=== PATIENT | male | born 1990 | race American Indian/Alaskan Native ===

== ENCOUNTER 2017-08-28 08:09 | Emergency (ER) | payer SELFPAY ==
[2017-08-28 09:28] LABS: Bacteria,Urine 1+ /HPF (Negative); Bilirubin,Urine NEG (Negative); Blood,Urine NEG (Negative); Color,Urine Yellow (Yellow); Mucus,Urine 2+ /HPF; Nitrite,Urine NEG (Negative); Protein,Urine <15 mg/dL mg/dL (Negative); Urobilinogen,Urine < 2.0 mg/dL (<2.0)
--- NOTE | 2017-08-28 12:38 | Emergency Department Report ---
ED Rash HPI - HPI Chief Complaint: Skin Rash Stated Complaint: RASH/STD Location: Other (penile) Rash Symptoms: Yes Itching, No Facial Swelling, No Tongue/Oral Swelling, No Breathing Difficulties, No Choking Sensation, No Wheezing/Dyspnea, No Peeling, No Blistering, No Fever, No Lightheaded, No Malaise, No Myalgias Severity: Unable to Determine Other History: 27 y/o nontoxic in appearance male presents to the ED complaining of penile sores for the past 1 month. Pt has been seen by his pcp multiple times and was told that it may be syphillis and has been on doxycycline for that past few weeks. He states that the lesions come and go and cleared up recently and reappeared a few days ago. He states that he now has a tingling sensation and pain when something touches the region. He denies any fever, chills, cp, SOB, nasuea, vomiting, frequency, urgency, or LBP. He states that he has been eating, drinking, urinating, and defecating without any issues. He also admits to being treated for scabies about 3 months ago. NKDA. ED Review of Systems ROS: Stated complaint: RASH/STD Other details as noted in HPI Constitutional: denies: chills, fever Eyes: denies: eye pain, eye discharge, vision change ENT: denies: ear pain, throat pain Respiratory: denies: cough, shortness of breath, wheezing Cardiovascular: denies: chest pain, palpitations Endocrine: no symptoms reported Gastrointestinal: denies: abdominal pain, nausea, diarrhea Genitourinary: denies: urgency, dysuria Musculoskeletal: denies: back pain, joint swelling, arthralgia Skin: rash, other (at the penile shaft and near the opening, redness, and tingling) Neurological: denies: headache, weakness, paresthesias Psychiatric: denies: anxiety, depression Hematological/Lymphatic: denies: easy bleeding, easy bruising ED Past Medical Hx - Past Medical History Previous Medical History?: No - Surgical History Past Surgical History?: Yes Additional Surgical History: jaw sugery 2006 - Social History Smoking Status: Never Smoker Substance Use Type: Alcohol - Medications Home Medications: Home Medications Medication Instructions Recorded Confirmed Last Taken Type Acyclovir [Zovirax Tab] 400 mg PO Q8H #24 tab 08/28/17 Unknown Rx Rash Exam - Exam General: Vital signs noted. No distress. Alert and acting appropriately. HEENT: No Periorbital Edema, No Conjuctival Injection, No Chemosis, No Perioral Edema, No Tongue Edema, No Uvular Edema, No Compromised Airway, No Drooling Lungs: Yes Good Air Exchange, No Wheezes, No Ronchi, No Stridor, No Cough, No Retractions, No Use of Accessory Muscles, No Other Abnormal Lung Sounds Heart: Yes Regular, No Murmur Skin: Yes Tenderness (2, 4mm in size lesions, red and shiny in nature, one at the penile shaft and the other near the penile opening, mildly ttp, No oozing, pus or draiange from the site, manager internal in room Mary staff software engineer and then GAB Freed), No Urticarial Rash, No Maculopapular Rash, No Morbilliform rash, No Bulla(e), No Excoriations, No Weeping, No Erythema, No Edema, No Encrustations Other: Positive: Abdomen Normal, Neurologic Normal (alert and oriented, strength 5/5, EOMI, perrla, CN 1-12 intact), Musculoskeletal Normal ED Course Vital Signs 08/28/17 08:14 Temperature 98.1 F Pulse Rate 88 Respiratory 16 Rate Blood Pressure 128/70 O2 Sat by Pulse 100 Oximetry ED Medical Decision Making - Medical Decision Making Pt was examined by myself and GAB Freed. Pt is currently on doxycycline for suspected syphyllis given to by his PCP, pt states that he was never told that he had syphyllis but he states that his PCP was treating him prophylactically as she was unsure what the cause of the lesion was. The presentation today appeared to be consistent with the early stages of herpes formation prior to the crusting stage and with the tenderness to palpation and tingling sensation I have treated patient with herpes simplex with acyclovir at this time, I have obtained an HSV swab to confirm this diagnosis. Pt has an apt with PCP on Wednesday for follow-up regarding this issue, he was encouraged to keep this appointment. I have also provided him with a dermatology referral at this time. Critical care attestation.: If time is entered above; I have spent that time in minutes in the direct care of this critically ill patient, excluding procedure time. ED Disposition Clinical Impression: Penile lesion Disposition: DC-01 TO HOME OR SELFCARE Is pt being admited?: No Does the pt Need Aspirin: No Condition: Stable Instructions: Acyclovir (By mouth), Genital Herpes Simplex (ED) Additional Instructions: Please take the antiviral 3 times a day as indicated. Please follow-up with PCP within 3-5 days. Please [place] [employer] your results within 3-5 days. Please follow-up with dermatology within 1 week. Return to the ER immediately if your presenting symptoms acutely progress or worsen. Prescriptions: Acyclovir [Zovirax Tab] 400 mg PO Q8H #24 tab Referrals: ARIA KNIGHT MD [Primary Care Provider] - 3-5 Days TINA CAGE MD [Staff Physician] - 3-5 Days [facility] [Outside] - 3-5 Days [facility] [Outside] - 3-5 Days Forms: Work/School Release Form(ED)
[2017-08-28 13:32] VITALS: BP 121/70
== END 2017-08-28 13:35 | disposition home or self-care (01) ==
LOC: ED 08:09
DX: N50.9 Disorder of male genital organs, unspecified (principal)
CPT/HCPCS: 81001; 87529; 99283